=== PATIENT | male | born 1980 | race Caucasian/White ===

== ENCOUNTER 2019-06-04 10:59 | Emergency (ER) | payer OTHER ==
[~2019-06-04] VITALS: Ht 175.3 cm; Wt 85.3 kg
[2019-06-04] MEDS ORDERED: OMEPRAZOLE 20 M20 M1 PO (11:11)
[2019-06-04] MEDS ORDERED: XANAX 0.25 MG0.25 MG PO (11:11)
[2019-06-04] MEDS ORDERED: VIIBRYD20 MG PO (11:11)
[2019-06-04 11:29] LABS: HEMATOCRIT 47.7 % (42.0-52.0); HEMOGLOBIN 16.8 gm/dL (14.0-18.0); MCH 29.8 pg (26.0-34.0); MCHC 35.2 g/dL (28.0-37.0); MCV 84.5 fL (80.0-100.0); MPV 7.2 fl. (7.2-11.1); RBC 5.64 mil/uL (4.50-6.00); WBC 7.9 thou/uL (4.0-11.0)
[2019-06-04 11:43] LABS: URINE BILIRUBIN NEGATIVE (Negative); URINE BLOOD NEGATIVE (Negative); URINE CLARITY CLEAR; URINE COLOR YELLOW; URINE GLUCOSE-RANDOM NEGATIVE (Negative); URINE KETONES NEGATIVE (Negative); URINE LEUKOCYTES NEGATIVE (Negative); URINE NITRITE NEGATIVE (Negative); URINE PROTEIN NEGATIVE (Negative); URINE UROBILINOGEN 0.2 E.U./dl (0.2-1.0)
[2019-06-04 11:46] LABS: CALCIUM 9.5 mg/dL (8.5-10.1); POTASSIUM 3.8 mmol/L (3.5-5.1)
[2019-06-04 11:51] LABS: ALBUMIN 4.3 g/dL (3.4-5.0); TOTAL BILIRUBIN 0.6 mg/dL (<0.1-1.0); TOTAL PROTEIN 8.3 g/dL (6.4-8.2)
[2019-06-04 11:52] LABS: AMP/METHAMP Negative (Negative); BARBITURATES Negative (Negative); BENZODIAZEPINES POSITIVE (Negative); COCAINE Negative (Negative); METHADONE Negative (Negative); OPIATES Negative (Negative); PCP Negative (Negative); THC Negative (Negative)
[2019-06-04 12:01] LABS: SALICYLATE < 2.8 mg/dL (2.8-20.0)
[2019-06-04 12:03] LABS: ACETAMINOPHEN < 2 ug/mL (10-30); ALCOHOL < 10 mg/dL (<10)
[2019-06-04 12:59] VITALS: BP 155/98
== END 2019-06-04 13:00 | disposition left against medical advice (07) ==
LOC: M.ERS 10:59
PROVIDERS: Personal Emergency Response Attendant
DX: F32.9 Major depressive disorder, single episode, unspecified (principal); F41.9 Anxiety disorder, unspecified; Z79.899 Other long term (current) drug therapy; Z88.0 Allergy status to penicillin